=== PATIENT | female | born 2000 | race Caucasian/White ===

== ENCOUNTER 2024-09-24 08:27 | Emergency (ER) | payer MEDICAID, SELFPAY ==
[2024-09-24] VITALS (23 sets, daily range): BP systolic 104–128; BP diastolic 58–81; PULSE 66–96; RESP 14–26; TEMP 36.4; O2SAT 98–100
--- NOTE | 2024-09-24 08:15 | RT.EKG_ITS ---
APPROVED REPORT Exam: Resting ECG Reason for Exam: chest pain Patient Location: E HR:73 bpm ECG Measurements Heart Rate 73 AXIS UT 136 P 56 QRSd 78 QRS 73 QT 377 T 52 QTc 414 Conclusion Sinus rhythm...normal P axis, V-rate 60- 99
--- NOTE | 2024-09-24 08:30 | DI.RAD_ITS ---
Exam(s) XR PORTABLE CHEST AP EXAM: XR PORTABLE CHEST AP CLINICAL HISTORY: chest pain. TECHNIQUE: 2D digital imaging was performed. COMPARISON: No exams were available for comparison FINDINGS: Single AP portable view. Heart size is upper normal. The mediastinum is not widened. Lungs are clear. No infiltrates nor obvious pleural effusions. IMPRESSION: No acute pulmonary findings on this single AP portable view of the chest. DATA REPOSITORY: RADIATION DOSE DELIVERED:
--- NOTE | 2024-09-24 08:43 | ED.GENADUL_ITS ---
Discharge Plan Disposition Patient Disposition: Home Condition: Stable Discharge Details Chief Complaint: Chest Pain Clinical Impression: Chest pain Primary Care Provider: None,None ED Provider: Juan J Hansen Home Meds and New Rx's Prescriptions: No Action No Known Home Meds Discharge Instructions Additional Instructions: Try to drink fluids to stay hydrated. Follow-up with either express care or your primary care provider if your stomach symptoms in a week. If you feel significantly more ill or have new symptoms such as persistent vomiting return to the closest emergency department. You can try taking a daily acid behavioral science chair that might help such as omeprazole. HPI General Mode of arrival: ambulatory . Date/Time Provider Initiated Documentation: 09/24/24 08:30 . Limitations to Documentation: no limitations . Information obtained by: patient . History of Present Illness 23 year old F presents to the emergency department with the chief complaint of chest pain, described as moderate, Quality is described as other (pressure), and is localized to the chest. Patient extremity. Patient started experiencing this hour(s) (1) and it has been constant. No relieving factors improve symptom(s), No exacerbating factors reported . Patient notes shortness of breath; denies fever/chills. Patient did receive the following treatments prior to arrival, none Related Data Home Medications ?Medication ?Instructions ?Recorded ?Confirmed Unknown [No Known Home Meds] 09/24/24 09/24/24 Allergies Allergy/AdvReac Type Severity Reaction Status Date / Time No Known Allergies Allergy Unverified 09/24/24 08:32 General Stated Complaint: Chest Pain RICHELLE: 3 Review of Systems All systems reviewed & are unremarkable except as noted in HPI and below Constitutional Constitutional: Denies chills, Denies fever(s) and Denies weakness Cardiovascular Cardiovascular: Reports chest pain and Reports dyspnea Respiratory Respiratory: Denies cough and Reports dyspnea Gastrointestinal Gastrointestinal: Denies abdominal pain, Denies nausea and Denies vomiting Neurologic Neurologic: Denies weakness Psychiatric Psychiatric: Denies depression Exam Const General: no acute distress Orientation: alert HENMT Head: normal to inspection Ears: external ears normal General nose exam: external nose normal Mouth: moist mucous membranes Eyes General: appearance normal, both eyes and all related structures Neck Neck: normal visual inspection Resp Effort & Inspection: normal respiratory effort and able to speak in complete sentences Auscultation: clear to auscultation bilaterally Cardio Jugular venous pressure: no JVD Rate: regular rate Heart Sounds: no murmurs GI Palpation: soft and nontender Skin General skin exam: no rashes or lesions noted Neuro General: patient alert and patient oriented x3 Extrem General: normal to inspection Psych Mental Status: mental status grossly normal Course Vital Signs Vital signs: Vital Signs Temperature 36.4 C L 09/24/24 08:30 Pulse 71 09/24/24 08:30 Respiratory Rate 17 09/24/24 08:30 Blood Pressure 116/58 L 09/24/24 08:30 Pulse Oximetry 99 09/24/24 08:30 Temperature 36.4 C L 09/24/24 08:30 Temperature Source Tympanic 09/24/24 08:30 Pulse 71 09/24/24 08:30 Respiratory Rate 17 09/24/24 08:30 Blood Pressure 116/58 L 09/24/24 08:30 Blood Pressure Position Sitting 09/24/24 08:30 Pulse Oximetry 99 09/24/24 08:30 Oxygen Delivery Method Room Air 09/24/24 08:30 Oxygen Flow Rate 0 09/24/24 08:30 Pain Level 6 09/24/24 08:30 Medical Decision Making 23-year-old female who denies any chronic medical problems comes in with chest pressure radiating to her left arm starting this morning. She says she is in the [employer] and her last day is tomorrow and that she will be working a job and thinks this may be causing some stress. She denies any drug use, fevers, difficulty breathing, vomiting. She is well-appearing speaking full sentences. She has clear lung sounds, no JVD, no murmur, no leg swelling or calf tenderness, no abdominal tenderness. Given her young age I doubt ACS but will send troponins and also check a CBC, CMP and lipase. Will also send a D- dimer to screen for PE. She has no tearing back pain she has equal peripheral pulses so I doubt dissection. Patient stable, I did give her Protonix and Mylanta with minimal relief and a dose of Toradol which helped. Labs unremarkable, she does have a mild elevation of bilirubin but on reviewing labs in the past that she is on her [place] looks like she is chronically elevated so I suspect she probably has [place]. She has no right upper quadrant tenderness so I do not feel any imaging is indicated. She is stable for discharge and will follow-up with her PCP or express care, return precautions given Differential Diagnosis Differential Diagnosis: Anxiety, pleurisy, PE, ACS Medical Records Medical records reviewed: Yes I reviewed the patient's medical records. Lab Data Lab results reviewed: Yes I reviewed the patient's lab results. ECG Data Attestation: I personally reviewed and interpreted this ECG (s) as follows: Prior ECG tracings: not available for review Interpretation: sinus rate of 73 pr 136 no stemi Quality:SDOH Health Related Social Needs: No Data to Display PFSH All Active Problems (Updated 09/24/24 @ 10:56 by Juan J Hansen MD) Chest pain (Acute) Social History Smoking/Tobacco Use Status: Current every day Tobacco Type: e-cigarettes Smoking risk assessment performed?: Yes Alcohol Intake: never Drug use: Never Substance use type: does not use
[2024-09-24 09:08] LABS: Abs Immature Grans 0.03 10^3/uL (0.0-0.06); Absolute Basophil Count 0.02 10^3/uL (0.0-0.2); Absolute Lymphocyte Count 0.53 10^3/uL (1.2-3.4); Absolute Monocyte Count 0.49 10^3/uL (0.1-0.8); Absolute Neutrophil Count 8.82 10^3/uL (1.2-6.7); Basophils % 0.2 %; HCT 47.6 % (36.0-46.0); HGB 15.3 g/dL (11.2-15.7); Immature Grans % 0.3 %; Lymphocytes % 5.3 %; MCH 29.1 pg (27.0-33.0); MCHC 32.1 % (32.0-36.0); MCV 91 fL (80-95); MPV 10.2 fL (8.0-11.0); Monocytes % 4.9 %; Neutrophils % 88.3 %; Platelet Count 273 10^3/uL (130-400); RBC 5.25 10^6/uL (3.93-5.22); RDW 12.1 % (11.7-14.6); RDW-SD 40.2 fL; WBC 9.99 10^3/uL (4.4-10.8)
[2024-09-24 09:37] LABS: ALT 13 U/L (14-59); AST 17 U/L (15-37); Albumin 3.9 g/dL (3.4-5.0); Alkaline Phosphatase 76 U/L (46-116); BUN 10 mg/dL (7-18); Bilirubin, Total 3.1 mg/dL (0.2-1.0); CREATININE 0.9 mg/dL (0.55-1.02); Calcium 9.1 mg/dL (8.5-10.1); Chloride 105 mmol/L (98-107); Estimated GFR 92.12 (mL/min/1.73m2); Glucose 92 mg/dL (74-106); Lipase 33 U/L (<78); Magnesium 1.9 mg/dL (1.8-2.4); Potassium 3.9 mmol/L (3.5-5.1); Sodium 141 mmol/L (136-145); TSH (W/Ref FT4) 1.64 uIU/mL (0.36-3.74); Total Protein 7.8 g/dL (6.4-8.2)
[2024-09-24 09:39] LABS: HCG Qual (Serum) Negative
[2024-09-24 09:40] LABS: Troponin I < 4 ng/L (<or=51)
[2024-09-24] MEDS: Normal Saline 1,000 ML 1000 ML IV (10:22)
[2024-09-24] MEDS: Pantoprazole 40 MG VIAL IVP (10:22)
[2024-09-24] MEDS: Normal Saline 50 ML (10:23)
[2024-09-24] MEDS: Mylanta Suspension 30 ML CUP PO (10:23)
[2024-09-24 10:26] LABS: Troponin I < 4 ng/L (<or=51)
[2024-09-24] MEDS: Ketorolac 15 MG/ML VIAL IVP (11:01)
== END 2024-09-24 11:41 | disposition home or self-care (01) ==
PROVIDERS: Emergency Provider Emergency Medicine
DX: R07.9 Chest pain, unspecified (principal); R42 Dizziness and giddiness; F17.290 Nicotine dependence, other tobacco product, uncomplicated
CPT/HCPCS: 36415; 80053; 83690; 93005; 96361; 96374; 96375; 99284; 71045; 83735; 84443; 84484; 84703; 85025; 93010; J1885; J2470